=== PATIENT | female | born 1965 ===

== ENCOUNTER 2023-06-16 21:44 | Emergency (ER) | payer BC, OTHER ==
--- NOTE | 2023-06-16 23:12 | ER ---
Nurse's Notes [facility] Name: Shabana Ramos Age: 58 yrs Sex: Female : 1965 Arrival Date: 06/16/2023 Time: 21:44 Bed 8 Private MD: Diagnosis: Other disorders of globe-traumatic rupture Presentation: 06/16 22:05 Chief complaint: Patient states: That she was getting ketchup out of the fridge and she cm10 dropped the bottle and it bounced off a shelf and hit her in the right eye. Pt states that as soon as it happened she looked down and "I felt all the fluid pouring of my eye." pt states that this has happened before. Coronavirus screen: Client denies travel out of the [place] in the last 14 days. Ebola Screen: Patient denies travel to an Ebola-affected area in the 21 days before illness onset. No symptoms or risks identified at this time. Mechanism of Injury: Ketchup bottle hit right eye. The patient reports a positive loss of vision. The patient's loss of vision began suddenly. Initial Sepsis Screen: Does the patient meet any 2 criteria? No. Patient's initial sepsis screen is negative. Does the patient have a suspected source of infection? No. Patient's initial sepsis screen is negative. Risk Assessment: Do you want to hurt yourself or someone else? Patient reports no desire to harm self or others. Onset of symptoms was June 16, 2023. 22:05 Method Of Arrival: Ambulatory cm10 22:05 Acuity: MANISHA 2 cm10 Historical: - Allergies: 22:03 No Known Allergies; cm10 - PMHx: 22:03 Glaucoma plates; cm10 - PSHx: 22:03 corneal transplant X2; Glaucoma tube; cm10 - Immunization history:: Adult Immunizations unknown. - Social history:: Smoking status: Patient reports the use of cigarette tobacco products, smokes one-half pack cigarettes per day. Screenin:22 [facility] ED Fall Risk Assessment (Adult) History of falling in the last 3 months, lg3 including since admission No falls in past 3 months (0 pts). Abuse screen: Denies threats or abuse. Denies injuries from another. Nutritional screening: No deficits noted. Tuberculosis screening: No symptoms or risk factors identified. Assessment: 23:22 General: Appears in no apparent distress. uncomfortable, Behavior is calm, cooperative. lg3 Pain: Complains of pain in right eye. Neuro: No deficits noted. Stovall Agitation-Sedation Scale (RASS): 0 - Alert and Calm Level of Consciousness is awake, alert, obeys commands, Oriented to person, place, time, situation. Cardiovascular: No deficits noted. Denies chest pain, shortness of breath, Capillary refill < 3 seconds Clubbing of nail beds is absent JVD is absent Patient's skin is warm and dry. Respiratory: No deficits noted. Airway is patent Respiratory effort is even, unlabored, Respiratory pattern is regular, symmetrical. GI: No deficits noted. No signs and/or symptoms were reported involving the gastrointestinal system. Abdomen is round non-distended. : No deficits noted. No signs and/or symptoms were reported regarding the genitourinary system. EENT: Eyes trauma noted to right eye. Sclera/Cornea. Derm: No deficits noted. No signs and/or symptoms reported regarding the dermatologic system. Skin is intact, is healthy with good turgor, Skin is dry, Skin is normal, Skin temperature is warm. Musculoskeletal: No deficits noted. No signs and/or symptoms reported regarding the musculoskeletal system. Circulation, motion, and sensation intact. Range of motion: intact in all extremities. 06/17 00:04 General: Appears in no apparent distress. uncomfortable, Behavior is calm, cooperative. lg3 Pain: Complains of pain in right eye Pain currently is 9 out of 10 on a pain scale. Vital Signs: 06/16 22:05 BP 178 / 104; Pulse 83; Resp 18; Temp 98.7(O); Pulse Ox 97% ; Weight 76.2 kg; Height 5 cm10 ft. 1 in. ; Pain /10; 06/17 00:04 BP 165 / 92; Pulse 86; Resp 17 S; Pulse Ox 96% on R/A; lg3 00:44 BP 153 / 79; Pulse 63; Resp 18; Pulse Ox 96% on R/A; kd3 06/16 22:05 Body Mass Index 31.74 (76.20 kg, 154.94 cm) cm10 06/16 22:05 Pain Scale: Adult cm10 ED Course: 06/16 21:45 Patient arrived in ED. ag3 22:09 Triage completed. cm10 22:09 Arm band placed on Patient placed in an exam room, on a stretcher. cm10 22:28 Robert Edward PA is PHCP. cp 22:28 Robert Garcia MD is Attending Physician. cp 22:50 Maxillofacial Wo Con In Process Unspecified. EDMS 22:50 Chapis Haile, JAVI is Primary Nurse. kd3 23:10 Initiated transfer with Judie at [facility]. rv1 23:17 Inserted saline lock: 20 gauge in left antecubital area, using aseptic technique. Blood oe collected. 23:22 Patient has correct armband on for positive identification. Placed in gown. Bed in low lg3 position. Call light in reach. Side rails up X 1. Client placed on continuous cardiac and pulse oximetry monitoring. NIBP monitoring applied. lunchroom monitor on. Door closed. Noise minimized. Warm blanket given. Family accompanied patient. 23:22 Patient maintains SpO2 saturation greater than 95% on room air. lg3 08 00:45 Provided Education on: . kd3 00:45 No provider procedures requiring assistance completed. Patient transferred, IV remains kd3 in place. Administered Medications: 06/16 23:22 Not Given (Patient Refused): Tetanus-Diphtheria Toxoid IM Adult 0.5 ml IM once; Provide lg3 Vaccine Information Statement (VIS). 23:22 Drug: ceFAZolin IVPB 1 grams Route: IVPB; Site: left antecubital; lg3 23:45 Follow up: Response: No adverse reaction; IV Status: Completed infusion; IV Intake: [id number] 23:22 Drug: morphine IVP or IV 4 mg Route: IVP; Infused Over: 4 mins; Site: left antecubital; lg3 23:45 Follow up: Response: No adverse reaction lg3 23:45 Drug: vancoMYCIN IVPB 1 grams Route: IVPB; Infused Over: 2 hrs; Site: left antecubital; lg3 08 00:46 Follow up: IV Status: Infusion continued kd3 00:05 Drug: HYDROmorphone IVP 1 mg Route: IVP; Site: left antecubital; lg3 00:45 Follow up: Response: No adverse reaction; Pain is decreased kd3 Medication: 00:45 VIS not applicable for this client. kd3 Intake: 06/16 23:45 IV: 50ml; Total: 50ml. lg3 Outcome: 23:12 ER care complete, transfer ordered by MD. gómez 06/17 00:45 Transferred by ground EMS kd3 Condition: stable Discharge instructions given to patient, Instructed on the need for transfer, Demonstrated understanding of instructions. 00:59 Patient left the ED. kd3 Signatures: Dispatcher [employer] EDMS Robert Edward PA PA cp Espinosa, Orlando oe Gomez, Alice 3 Julia Munguia RN RN lg3 Chapis Haile RN RN kd3 Latanya Eldridge1 Sarah Duncan RN RN cm10 Corrections: (The following items were deleted from the chart) 06/16 22:05 22:03 Home Meds: None; cm10 cm10
--- NOTE | 2023-06-16 23:12 | EDPHYS ---
Physician Documentation [facility] Name: Shabana Ramos Age: 58 yrs Sex: Female : 1965 Arrival Date: 06/16/2023 Time: 21:44 Bed 8 Private MD: ED Physician Robert Garcia HPI: 06/16 22:30 This 58 yrs old Female presents to ER via Ambulatory with complaints of Eye Problem, cp Eye Injury. 22:30 The patient sustained to the right eye, caused by direct blow from "bottle of ketchup". cp 22:30 Onset: The symptoms/episode began/occurred just prior to arrival. Patient is a cp 58-year-old female who presents to the emergency department with injury to the right eye that she sustained at home. Patient reports she was trying to retrieve a bottle of ketchup from a shelf when she fumbled it and the bottle subsequently struck her in the right eye causing apparently collapse of the globe of the right eye. 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 Historical: - Allergies: 22:03 No Known Allergies; cm10 - PMHx: 22:03 Glaucoma plates; cm10 - PSHx: 22:03 corneal transplant X2; Glaucoma tube; cm10 - Immunization history:: Adult Immunizations unknown. - Social history:: Smoking status: Patient reports the use of cigarette tobacco products, smokes one-half pack cigarettes per day. ROS: 22:35 Eyes: Positive for pain, vision loss. cp 22:35 Constitutional: Negative for body aches, chills, fever, poor PO intake. cp 22:35 Cardiovascular: Negative for chest pain. cp 22:35 Respiratory: Negative for cough, shortness of breath, wheezing. 22:35 Abdomen/GI: Negative for abdominal pain, nausea, vomiting, and diarrhea. 22:35 Neuro: Positive for headache, Negative for altered mental status. 22:35 All other systems are negative. Exam: 22:40 Constitutional: The patient appears in no acute distress, alert, awake, non-toxic, well cp developed, well nourished, uncomfortable. 22:40 Head/Face: Normocephalic, atraumatic. cp 22:40 Eyes: Periorbital structures: appear normal, Lids and lashes: appear normal, bilaterally, Visual ríos: absent to right eye. Examination of right eye shows marked deformity of the globe, and appears collapsed and sunken. Patient with tenderness to the eye. Examination of the left eye appears unremarkable. 22:40 ENT: External ear(s): are unremarkable, Nose: is normal, Mouth: Lips: moist, Oral mucosa: pink and intact, moist, Posterior pharynx: is normal, airway is patent, no erythema, no exudate. 22:40 Neck: ROM/movement: is normal, is supple, without pain, no range of motions limitations. 22:40 Chest/axilla: Inspection: normal. 22:40 Cardiovascular: Rate: normal, Rhythm: regular. 22:40 Respiratory: the patient does not display signs of respiratory distress, Respirations: normal, Breath sounds: are clear throughout, no decreased breath sounds, no stridor, no wheezing. 22:40 Abdomen/GI: Exam negative for discomfort, distension, guarding, Inspection: abdomen appears normal. 22:40 Back: pain, is absent. 22:40 Skin: cellulitis, is not appreciated, no rash present. 22:40 Neuro: Orientation: to person, place \\T\\ time. Mentation: is normal, Motor: moves all fours, strength is normal, Gait: is steady. Vital Signs: 22:05 BP 178 / 104; Pulse 83; Resp 18; Temp 98.7(O); Pulse Ox 97% ; Weight 76.2 kg; Height 5 cm10 ft. 1 in. ; Pain 5/10; 08 00:04 BP 165 / 92; Pulse 86; Resp 17 S; Pulse Ox 96% on R/A; lg3 00:44 BP 153 / 79; Pulse 63; Resp 18; Pulse Ox 96% on R/A; kd3 06/16 22:05 Body Mass Index 31.74 (76.20 kg, 154.94 cm) cm10 06/16 22:05 Pain Scale: Adult cm10 MDM: 06/16 22:30 Patient medically screened. cp 23:00 Differential diagnosis: Corneal ulcer of Foreign body in globe rupture. cp 23:28 Data reviewed: vital signs, nurses notes, radiologic studies, CT scan, and as a result, cp I will administer antibiotics. ED course: patient accepted to [facility] w/o doc to doc discussion, accepting physician is DR Arthur. 06/16 22:29 Order name: Basic Metabolic Panel; Complete Time: 23:53 cp 06/16 23:53 Interpretation: Normal except: CL 108. cp 06/16 22:29 Order name: CBC with Diff; Complete Time: 00:19 cp 06/17 00:20 Interpretation: Normal except: RBC 5.17; HCT 45.8. cp 06/16 22:50 Order name: Maxillofacial Wo Con EDMS 06/16 22:29 Order name: IV Saline Lock; Complete Time: 23:58 cp 06/16 22:29 Order name: Labs collected and sent; Complete Time: 23:58 cp 06/16 22:29 Order name: O2 Per Protocol; Complete Time: 23:58 cp 06/16 22:29 Order name: O2 Sat Monitoring; Complete Time: 23:58 cp Administered Medications: 23:22 Not Given (Patient Refused): Tetanus-Diphtheria Toxoid IM Adult 0.5 ml IM once; Provide lg3 Vaccine Information Statement (VIS). 23:22 Drug: ceFAZolin IVPB 1 grams Route: IVPB; Site: left antecubital; lg3 23:45 Follow up: Response: No adverse reaction; IV Status: Completed infusion; IV Intake: [id number] 23:22 Drug: morphine IVP or IV 4 mg Route: IVP; Infused Over: 4 mins; Site: left antecubital; lg3 23:45 Follow up: Response: No adverse reaction lg3 23:45 Drug: vancoMYCIN IVPB 1 grams Route: IVPB; Infused Over: 2 hrs; Site: left antecubital; lg3 06/17 00:46 Follow up: IV Status: Infusion continued kd3 00:05 Drug: HYDROmorphone IVP 1 mg Route: IVP; Site: left antecubital; lg3 00:45 Follow up: Response: No adverse reaction; Pain is decreased kd3 Disposition Summary: 06/16/23 23:12 Transfer Ordered Transfer Location: [facility] cp Reason: Higher level of care cp Condition: Stable cp Problem: new cp Symptoms: have improved cp Accepting Physician: DR Arthur(06/17/23 00:59) kd3 Diagnosis - Other disorders of globe - traumatic rupture cp Forms: - Medication Reconciliation Form cp - SBAR form cp Signatures: Dispatcher [employer] EDGA Robert Edward PA PA cp Gibson, Lacie, RN RN lg3 Mic, Chapis, RN RN kd3 Sarah Duncan RN RN cm10 Corrections: (The following items were deleted from the chart) 06/16 22:05 22:03 Home Meds: None; cm10 cm10 22:50 22:29 Facial Bones W/ [id number] ordered. EDMS EDMS 23:28 23:12 Doctor [facility] 06/17 00:05 06/16 22:29 EKG - Nurse/Tech ordered. [facility] 06/17 00:06 06/16 22:29 Cardiac monitoring ordered. [facility] 06/17 00:59 06/16 23:28 DR Arthur cp kd3
[2023-06-16] MEDS ORDERED: CEFAZOLIN SODIUM 1 GM/VIAL ONE (23:19)
[2023-06-16] MEDS ORDERED: NA CHLORIDE 0.9% 250 ML ONE (23:20)
[2023-06-16] MEDS ORDERED: TDAP (DIPHTH,PERTUSS(ACELL),TET VAC) 0.5 ML VIAL IMVAC ONE (23:20)
[2023-06-16] MEDS ORDERED: MORPHINE 4 MG/ML SYR ONE (23:20)
[2023-06-16] MEDS ORDERED: VANCOMYCIN 1 GM/VIAL ONE (23:20)
[2023-06-16] MEDS ORDERED: NA CHLORIDE 0.9% 50 ML ONE (23:20)
[2023-06-16 23:34] LABS: Absolute Lymphocytes (CBC) 2.7 K/uL (0.7-4.9); Hematocrit 45.8 % (36.0-45.0); Lymphocytes % 25.1 % (15.3-44.8); MCV 88.6 fL (80-100); MPV 9.1 fL (7.6-11.3); Platelets 257 thou/uL (152-406); RBC Red Blood Cell Count 5.17 M/uL (3.86-4.86)
[2023-06-16 23:41] LABS: Potassium 3.7 mEq/L (3.5-5.1)
[2023-06-17] MEDS ORDERED: HYDROMORPHONE HCL 1 MG/ML INJ ONE (00:10)
[2023-06-17 01:56] VITALS: TEMP 98.7
[2023-06-17 01:57] VITALS: O2SAT 96
[2023-06-17 01:58] VITALS: BP 153/79
--- NOTE | 2023-06-17 16:54 | RAD REPORT ---
EXAM DESCRIPTION: CT Maxillofacial Without Intravenous Contrast CLINICAL HISTORY: The patient is 58 years old and is Female; eye injury TECHNIQUE: Axial computed tomography images of the face without intravenous contrast. Sagittal and coronal reformatted images were created and reviewed. This CT exam was performed using one or more of the following dose reduction techniques: automated exposure control, adjustment of the mA and/o r kV according to patient size, and/or use of iterative reconstruction technique. COMPARISON: No relevant prior studies available. FINDINGS: BONES/JOINTS: The orbital floors and claudio are intact. The zygomatic arches and pteryg oid plates are intact. The visualized maxilla and mandible are intact. SOFT TISSUES: Unremarkable. ORBITS: Deformity of the right globe consistent with prior rupture and injury. Postsurgical mancuso e of the right globe is also present. The left globe is within normal limits. SINUSES: The visualized paranasal sinuses are clear. No air-fluid levels. NASAL CAVITY/SEPTUM: The nasal bones are intact. IMPRESSION: 1. No acute facial fracture. 2. Chronic changes of the right globe. No evidence of stranding. Correlation with prior imaging wou ld be useful. Electronically signed by: Viri Moseley MD 06/16/2023 11:25 PM CDT Due to temporary technical issues with the PACS/Fluency reporting system, reports are being signed by the in house radiologists without review as a courtesy to insure prompt reporting. The interpreting radiologist is fully responsible for the content of the report.
== END 2023-06-17 00:59 | disposition short-term general hospital (02) ==
LOC: ER 21:44
DX: S05.31XA Ocular laceration without prolapse or loss of intraocular tissue, right eye, initial encounter (principal); F17.210 Nicotine dependence, cigarettes, uncomplicated
CPT/HCPCS: 96365; 96367; 85025; 80048; 36415; 70486; 96375; 99285; J7050; J0690